=== PATIENT | female | born 1965 | race Caucasian/White ===

== ENCOUNTER → 2016-07-28 | Outpatient (CLI) | payer BC ==
--- NOTE | 2016-07-28 12:23 | US ---
EXAMINATION TYPE: US abdomen complete DATE OF EXAM: 07/28/2016 12:09 PM COMPARISON: NONE CLINICAL HISTORY: Abd Pain R10.33, K80.20 Gall Stones. Pt states ruq pain that radiates posteriorly a nd that wakes her up at night EXAM MEASUREMENTS: Liver Length: 13.8 cm Gallbladder Wall: 0.2 cm CBD: 0.4 cm Spleen: 7.8 cm Right Kidney: 10.1 x 3.7 x 5.0 cm Left Kidney: 11.2 x 4.4 x 3.6 cm TECHNOLOGIST IMPRESSION: Pancreas: wnl as seen Liver: wnl Gallbladder: couple tiny polyps near gb fundus Evidence for sonographic Luther's sign: no CBD: wnl Spleen: wnl Right Kidney: wnl Left Kidney: wnl, some limitations at lower pole due to overlying bowel gas Upper IVC: wnl Abd Aorta: wnl The gallbladder wall measures 2 mm. There are 2, questionable polyps in the fundus of the gallbladder . IMPRESSION: QUESTIONABLE POLYPS WITHIN THE FUNDUS OF THE GALLBLADDER.
== END | disposition home or self-care (01) ==
LOC: RADUSWWP 11:35
PROVIDERS: ATTEND Radiology Radiation Oncology
DX: R10.9 Unspecified abdominal pain (principal)
CPT/HCPCS: 76700

== ENCOUNTER → 2019-02-06 | Outpatient (CLI) | payer BC ==
--- NOTE | 2019-02-06 14:44 | CT ---
EXAMINATION TYPE: CT ChestAbdPelvis w con DATE OF EXAM: 02/06/2019 COMPARISON: None HISTORY: 53-year-old female Breast cancer/suspect mets TECHNIQUE: Contiguous axial scanning of the chest, abdomen, and pelvis performed with IV Contrast, pa tient injected with 100 mL of Isovue 300. Delayed images through the kidneys were obtained. Coronal/s agittal reconstructions performed. CT DLP: 552.8 mGycm Automated exposure control for dose reduction was used. FINDINGS: CHEST: Heart normal size without pericardial effusion. Aortic root is ectatic up to 3.8 cm. Ascending aorta aneurysmal at 4.0 cm. Conventional arch vessel b ranching anatomy. No thoracic lymphadenopathy by CT size criteria. Left axillary surgical clips and bilateral TRAM flap reconstructions demonstrated. Focal pleural parenchymal thickening extending to the left suprahilar region with associated traction bronchiectasis and volume loss. The degree of thickening in the subpleural region measuring up to 1. 2 cm, follow-up is recommended to reassess for any changes. Focal patchy groundglass nodularity measuring up to 6 mm within the right lower lobe, referred to axi al images 47 and 49 Otherwise, no consolidation or pleural effusion. ABDOMEN: No focal liver lesion or biliary ductal dilatation. Portal venous system is patent. Reading motion ar tifacts within the abdomen. Gallbladder, adrenal glands, kidneys, spleen, and pancreas appear within normal limits. No dilated small bowel, free fluid, or free air. No mesenteric or retroperitoneal lymphadenopathy sohan ntified. Scattered prominent mesenteric lymph nodes measure up to 4 mm. Normal appendix. Oral contrast has progressed to the rectum. No significant stool burden no pericolonic inflammatory c hange seen. PELVIS: Bladder is urine distended. Uterus is anteverted. Left-sided periuterine varices. Right ovary is visu alized. Left ovary not clearly delineated from bowel loops. No abnormal fluid collection in the pelvi s or pelvic lymphadenopathy seen. BONES: Numerous high density foci within the bilateral gluteal musculature of uncertain clinical significanc e and etiology, possible needles or calcifications. Facet arthropathy degenerative disc disease lower lumbar spine. No osseous destructive process seen. IMPRESSION: 1. STATUS POST LEFT AXILLARY CARMEN DISSECTION WITH BILATERAL TRAM FLAP RECONSTRUCTION. 2. FOCAL PLEURAL PARENCHYMAL THICKENING AND SOFT TISSUE DENSITY ANTERIOR LEFT UPPER LOBE WITH SOME SOCIATED CICATRICIAL BRONCHIECTASIS. POSTTREATMENT CHANGE IS FAVORED. HOWEVER, GIVEN THE DEGREE OF SO FT TISSUE THICKENING, SHORT INTERVAL FOLLOW-UP RECOMMENDED TO ENTER STABILITY. 3. NODULARITY MEASURING UP TO 6 MM AND ASSOCIATED GROUNDGLASS DENSITY RIGHT LOWER LOBE MAY REPRESENT AN INFECTIOUS/INFLAMMATORY FOCUS. CORRELATE WITH PATIENT'S SYMPTOMS. REASSESS AT FOLLOW-UP AFTER KEE TMENT. 4. PRIOR GRANULOMATOUS DISEASE AND MILD ANEURYSM ASCENDING AORTA 4.0 CM.
--- NOTE | 2019-02-06 17:17 | NM ---
EXAMINATION TYPE: NM bone scan whole body DATE OF EXAM: 02/06/2019 COMPARISON: CT same day HISTORY: 53-year-old female with history of breast cancer and chest pain for 2 to 4 weeks. Technique: Delayed whole-body scanning was performed following the injection of 23.8 mCi Tc 99m MDP. Images acquired 4 hours post injection. FINDINGS: There is some mild focal increased uptake in the anterior upper right chest likely corresponding to t he first rib end such as secondary to costochondritis. Some degenerative tracer activity noted along the left side of the L4-L5 disc space. No suspicious distribution of tracer to suggest osseous metast atic disease. IMPRESSION: Suspect some degenerative or posttraumatic focal uptake probably relating to the right first rib end. Correlate for any potential symptoms of costochondritis. Some degenerative activity toward the left in the lower lumbar spine. No scintigraphic evidence for osseous metastatic disease.
== END | disposition home or self-care (01) ==
LOC: RADCTMAIN 08:28
PROVIDERS: ATTEND Internal Medicine Hematology & Oncology
DX: C50.812 Malignant neoplasm of overlapping sites of left female breast (principal); J47.9 Bronchiectasis, uncomplicated; R91.1 Solitary pulmonary nodule; D71 Functional disorders of polymorphonuclear neutrophils; I71.2 Thoracic aortic aneurysm, without rupture; M51.36 Other intervertebral disc degeneration, lumbar region; Z98.890 Other specified postprocedural states
CPT/HCPCS: 71260; 74177; 78306; A9503; Q9967

== ENCOUNTER → 2020-06-19 | Outpatient (CLI) | payer OTHER ==
--- NOTE | 2020-06-19 09:27 | USB ---
Reason for exam: clinical finding. History: Mastectomy of both breasts, 2010. Chemotherapy, 2011. Radiation therapy, 2010. Physical Findings: Nurse did not find any significant physical abnormalities on exam. US Breast BILAT Right complete breast ultrasound includes all four quadrants, the retroareolar region and axilla. Finding demonstrates no cystic or solid lesion seen. Left complete breast ultrasound includes all four quadrants, the retroareolar region and axilla. Finding demonstrates no cystic or solid lesion seen. Benign right axilla lymph node. These results were verbally communicated with the patient and result sheet given to the patient on 06/19/20. ASSESSMENT: Negative, BI-RAD 1 RECOMMENDATION: Clinical management of both breasts. Manage patient on a clinical basis.
== END | disposition home or self-care (01) ==
LOC: RADUSWWP 08:21
PROVIDERS: ATTEND Internal Medicine Hematology & Oncology
DX: Z08 Encounter for follow-up examination after completed treatment for malignant neoplasm (principal); Z85.3 Personal history of malignant neoplasm of breast

== ENCOUNTER → 2020-06-24 | Outpatient (CLI) | payer OTHER ==
--- NOTE | 2020-06-24 12:26 | CT ---
EXAMINATION TYPE: CT chest w con DATE OF EXAM: 06/24/2020 COMPARISON: 02/06/2019 HISTORY: breast CA follow up CT DLP: 130.3 mGycm, Automated exposure control for dose reduction was used. CONTRAST: Performed injected with 100 mL of Isovue 300. TECHNIQUE: Axial images were obtained at 5 mm thick sections. Reconstructed images are reviewed on Continuum computer in the coronal plane. FINDINGS: Portion of the thyroid visualized is normal. There is thickening with air bronchograms along the periphery of the anterior 6 left apex. This curre ntly measures to a depth of 2.4 cm. Prior measurement 1.2 cm. Some mild stranding is along the anterior lingula, example image series 4 image 32 this was present p reviously and is stable. No enlarged mediastinal or hilar adenopathy is evident. Couple small shotty lymph nodes are present. The ascending aorta diameter at the level of the main pulmonary artery is 3.8 cm. The main pulmonar y artery diameter at the bifurcation is 2.[address] sections are obtained through the upper abdomen. Abdomen is essentially unremarkable. IMPRESSIONS: 1. There is some progressive thickening of the consolidation anterior lateral left apex. Consider PET CT for additional evaluation. 2. No additional suspicious areas for metastatic disease
== END | disposition home or self-care (01) ==
LOC: RADCTMAIN 09:08
PROVIDERS: ATTEND Internal Medicine Hematology & Oncology
DX: J98.4 Other disorders of lung (principal); C50.812 Malignant neoplasm of overlapping sites of left female breast; C50.111 Malignant neoplasm of central portion of right female breast
CPT/HCPCS: 71260; Q9967

== ENCOUNTER 2020-11-02 00:08 | Emergency (ER) | payer OTHER ==
[2020-11-02 00:13] VITALS: TEMP 97.8
[2020-11-02] MEDS ORDERED: ONDANSETRON 4 MG/2 ML VIAL IVP STA (00:32)
[2020-11-02] MEDS ORDERED: MORPHINE SULFATE 4 MG/ML SYRINGE IV STA (00:32)
--- NOTE | 2020-11-02 00:54 | ED ---
Abdominal Pain HPI - General Chief Complaint: Abdominal Pain Stated Complaint: Rt Side Pain Time Seen by Provider: 11/02/20 00:16 Source: patient, RN notes reviewed Mode of arrival: ambulatory Limitations: no limitations - History of Present Illness Initial Comments: Patient is a 55-year-old female that presents to emergency room complaining of right sided back pain. She notes the pain is worse on deep inspiration and is sharp in nature. She notes that she was lifting something and thought she might a strainer back patient is that she's also recently treated for UTI which she recently finished her anabiotic 4. She denied any urinary tract infection type symptoms at this time. She notes that the pain only comes on with deep inspiration right around the bottom of her ribs on the right side of her back. Patient was in no apparent distress or pain while sitting up in bed in the exam interview. She did note that her pain was approximately a 7 out of 10 and would like some pain medication. She denied any chest pain shortness of breath hea dache nausea vomiting diarrhea constipation fever fatigue chills injury trauma hematuria dysuria or frequency. - Related Data Home Medications Medication Instructions Recorded Confirmed Tamoxifen [Nolvadex] 20 mg PO DAILY 12/05/15 12/05/15 predniSONE 10 mg PO DAILY 12/05/15 12/05/15 Previous Rx's Medication Instructions Recorded Hydrocodone/Acetaminophen [[place] 1 each PO Q4HR PRN #20 tab 12/05/15 5-325] Allergies Allergy/AdvReac Type Severity Reaction Status Date / Time azithromycin Allergy Unknown Verified 11/02/20 00:13 clarithromycin [From Biaxin] Allergy Unknown Verified 11/02/20 00:13 clindamycin Allergy Unknown Verified 11/02/20 00:13 clobetasol Allergy Unknown Verified 11/02/20 00:13 dapsone Allergy Unknown Verified 11/02/20 00:13 erythromycin base Allergy Unknown Verified 11/02/20 00:13 gallium Allergy Unknown Verified 11/02/20 00:13 levofloxacin [From Levaquin] Allergy Unknown Verified 11/02/20 00:13 Penicillins Allergy Unknown Verified 11/02/20 00:13 salicylic acid [From Salvax] Allergy Unknown Verified 11/02/20 00:13 tetracycline Allergy Unknown Verified 11/02/20 00:13 Review of Systems ROS Statement: Those systems with pertinent positive or pertinent negative responses have been documented in the HPI. ROS Other: All systems not noted in ROS Statement are negative. Past Medical History Past Medical History: Cancer Additional Past Medical History / Comment(s): aneursym, breast cancer History of Any Multi-Drug Resistant Organisms: None Reported Past Surgical History: Breast Surgery Additional Past Surgical History / Comment(s): lymph node removal to left side Past Psychological History: No Psychological Hx Reported Smoking Status: Never smoker Past Alcohol Use History: Occasional Past Drug Use History: None Reported General Exam Limitations: no limitations General appearance: alert, in no apparent distress Head exam: Present: atraumatic, normocephalic, normal inspection Eye exam: Present: normal appearance, PERRL, EOMI. Absent: scleral icterus, conjunctival injection, periorbital swelling Neck exam: Present: normal inspection Respiratory exam: Present: normal lung sounds bilaterally. Absent: respiratory distress, wheezes, rales, rhonchi, stridor Cardiovascular Exam: Present: regular rate, normal rhythm, normal heart sounds. Absent: systolic murmur, diastolic murmur, rubs, gallop, clicks GI/Abdominal exam: Present: soft, normal bowel sounds. Absent: distended, tenderness, guarding, rebound, rigid Extremities exam: Present: normal inspection, full ROM, normal capillary refill. Absent: tenderness, pedal edema, joint swelling, calf tenderness Back exam: Present: normal inspection. Absent: tenderness Neurological exam: Present: alert, oriented X3, CN II-XII intact Psychiatric exam: Present: normal affect, normal mood Skin exam: Present: warm, dry, intact, normal color. Absent: rash Course Vital Signs 11/02/20 00:09 Temperature 97.8 F Pulse Rate 87 Respiratory 20 Rate Blood Pressure 155/97 O2 Sat by Pulse 98 Oximetry Medical Decision Making - Medical Decision Making 55-year-old female complaining of right back pain just inferior the ribs on deep inspiration. Labs, chest x-ray, 4 mg of morphine, 4 mg of Zofran ordered. Labs unremarkable. Chest x-ray no acute cardiopulmonary process. Case discussed with Dr. Fox, patient can discharge home with follow-up to primary care. - Lab Data Result diagrams: 11/02/20 00:43 11/02/20 00:43 Lab Results 11/02/20 11/02/20 11/02/20 Range/Units 00:43 00:43 00:43 WBC 6.7 (3.8-10.6) k/uL RBC 4.31 (3.80-5.40) m/uL Hgb 13.1 (11.4-16.0) gm/dL Hct 39.3 (34.0-46.0) % MCV 91.3 (80.0-100.0) fL MCH 30.4 (25.0-35.0) pg MCHC 33.3 (31.0-37.0) g/dL RDW 11.9 (11.5-15.5) % Plt Count 203 (150-450) k/uL MPV 6.9 Neutrophils % 62 % Lymphocytes % 26 % Monocytes % 6 % Eosinophils % 4 % Basophils % 1 % Neutrophils # 4.2 (1.3-7.7) k/uL Lymphocytes # 1.7 (1.0-4.8) k/uL Monocytes # 0.4 (0-1.0) k/uL Eosinophils # 0.3 (0-0.7) k/uL Basophils # 0.1 (0-0.2) k/uL Sodium 137 (137-145) mmol/L Potassium 4.2 (3.5-5.1) mmol/L Chloride 103 (98-107) mmol/L Carbon Dioxide 29 (22-30) mmol/L Anion Gap 5 mmol/L BUN 21 H (7-17) mg/dL Creatinine 0.82 (0.52-1.04) mg/dL Est GFR (CKD-EPI)AfAm >90 (>60 ml/min/1.73 sqM) Est GFR (CKD-EPI)NonAf 82 (>60 ml/min/1.73 sqM) Glucose 99 (74-99) mg/dL Calcium 9.6 (8.4-10.2) mg/dL Total Bilirubin 0.3 (0.2-1.3) mg/dL AST 31 (14-36) U/L ALT 20 (4-34) U/L Alkaline Phosphatase 84 (38-126) U/L Total Protein 6.9 (6.3-8.2) g/dL Albumin 4.3 (3.5-5.0) g/dL Urine Color Light Yellow Urine Appearance Clear (Clear) Urine pH 6.5 (5.0-8.0) Ur Specific [place] 1.011 (1.001-1.035) Urine Protein Negative (Negative) Urine Glucose (UA) Negative (Negative) Urine Ketones Negative (Negative) Urine Blood Negative (Negative) Urine Nitrite Negative (Negative) Urine Bilirubin Negative (Negative) Urine Urobilinogen <2.0 (<2.0) mg/dL Ur Leukocyte Esterase Negative (Negative) Disposition Clinical Impression: Mechanical back pain, Back strain Disposition: HOME SELF-CARE Condition: Stable Instructions (If sedation given, give patient instructions): Costochondritis (ED) Additional Instructions: Please return to the Emergency Department if symptoms worsen or any other concerns. Follow-up with primary care in 3-5 days. Rest, avoid any strenuous activity or lifting. Take Tylenol Motrin as needed for pain control. Is patient prescribed a controlled substance at d/c from ED?: No Referrals: None,Stated [Primary Care Provider] - 1-2 days Time of Disposition: 01:51
[2020-11-02 01:03] LABS: Basophils # (A) 0.1 k/uL (0-0.2); Basophils % (A) 1 %; Eosinophils # (A) 0.3 k/uL (0-0.7); Eosinophils % (A) 4 %; HCT 39.3 % (34.0-46.0); HGB 13.1 gm/dL (11.4-16.0); Lymphocytes # (A) 1.7 k/uL (1.0-4.8); Lymphocytes % (A) 26 %; MCH 30.4 pg (25.0-35.0); MCHC 33.3 g/dL (31.0-37.0); MCV 91.3 fL (80.0-100.0); Mean Platelet Volume 6.9; Monocytes # (A) 0.4 k/uL (0-1.0); Monocytes % (A) 6 %; Neutrophils # (A) 4.2 k/uL (1.3-7.7); Neutrophils % (A) 62 %; Platelet Count 203 k/uL (150-450); RBC 4.31 m/uL (3.80-5.40); RDW 11.9 % (11.5-15.5); WBC 6.7 k/uL (3.8-10.6)
[2020-11-02 01:07] LABS: Appearance,Urine Clear (Clear); Bilirubin,Urine Negative (Negative); Blood,Urine Negative (Negative); Color,Urine Light Yellow; Glucose,Urine (UA) Negative (Negative); Ketones,Urine Negative (Negative); Leukocyte Esterase,Urine Negative (Negative); Nitrite,Urine Negative (Negative); PH, Urine 6.5 (5.0-8.0); Protein,Urine Negative (Negative); Specific Gravity,Urine 1.011 (1.001-1.035); Urobilinogen,Urine <2.0 mg/dL (<2.0)
[2020-11-02 01:12] LABS: ALT 20 U/L (4-34); AST 31 U/L (14-36); African American GFR (CKD) >90 (>60 ml/min/1.73 sqM); Albumin 4.3 g/dL (3.5-5.0); Alkaline Phosphatase 84 U/L (38-126); Anion Gap 5 mmol/L; Blood Urea Nitrogen 21 mg/dL (7-17); Calcium 9.6 mg/dL (8.4-10.2); Carbon Dioxide 29 mmol/L (22-30); Chloride 103 mmol/L (98-107); Glucose 99 mg/dL (74-99); Non-African American GFR(CKD) 82 (>60 ml/min/1.73 sqM); Potassium 4.2 mmol/L (3.5-5.1); Sodium 137 mmol/L (137-145); Total Bilirubin 0.3 mg/dL (0.2-1.3); Total Protein 6.9 g/dL (6.3-8.2)
--- NOTE | 2020-11-02 01:55 | XR ---
EXAM: XR Chest, 2 Views CLINICAL HISTORY: Rib pain on deep breath TECHNIQUE: Frontal and lateral views of the chest. COMPARISON: 05/14/2014, 12/05/2015, CT 06/24/20 FINDINGS: Lungs: Stable bilateral pulmonary hyperinflation and pleural- parenchymal scar. No consolidation. Pleural space: No significant abnormality. No pneumothorax. Heart: No significant abnormality. No cardiomegaly. Mediastinum: No significant abnormality. Bones/joints: No acute osseous abnormality. Soft tissues: Surgical clips project over the left axilla. IMPRESSION: No acute cardiopulmonary process.
[2020-11-02] MEDS ORDERED: IBUPROFEN 600 MG STARTER PACK 4 TAB BTL PO STA (02:03)
[2020-11-02 02:27] VITALS: BP 145/89; PULSE 76; RESP 17
== END 2020-11-02 02:27 | disposition home or self-care (01) ==
LOC: EC 00:08
DX: S39.012A Strain of muscle, fascia and tendon of lower back, initial encounter (principal); Z85.3 Personal history of malignant neoplasm of breast; Z79.52 Long term (current) use of systemic steroids; Z87.440 Personal history of urinary (tract) infections; Z88.0 Allergy status to penicillin; Z88.1 Allergy status to other antibiotic agents; X58.XXXA Exposure to other specified factors, initial encounter
CPT/HCPCS: 36415; 80053; 85025; 81003; 71046; 99283; 96374; 96375; J2270; J2405

== ENCOUNTER → 2021-09-03 | Outpatient (CLI) | payer BC ==
[2021-09-03 17:58] LABS: Basophils # (A) 0.09 X 10*3/uL (0.00-0.10); Basophils % (A) 1.5 %; Eosinophils # (A) 0.08 X 10*3/uL (0.04-0.35); Eosinophils % (A) 1.3 %; HCT 41.4 % (37.2-46.3); Immature Grans, Automated 0.3 %; Lymphocytes # (A) 1.55 X 10*3/uL (0.90-5.00); Lymphocytes % (A) 25.4 %; MCH 29.6 pg (27.0-32.0); MCHC 31.4 g/dL (32.0-37.0); MCV 94.3 fL (80.0-97.0); Mean Platelet Volume 10.1 fL (9.5-12.2); Monocytes # (A) 0.37 X 10*3/uL (0.20-1.00); Monocytes % (A) 6.1 %; NRBC Per 100 WBC 0 /100 WBCS (0.0-0.0); Neutrophils # (A) 3.99 X 10*3/uL (1.80-7.70); Neutrophils % (A) 65.4 %; Platelet Count 220 X 10*3/uL (140-440); RBC 4.39 X 10*6/uL (4.10-5.20); RDW 12.3 % (11.5-14.5)
[2021-09-03 18:30] LABS: ALT 32 U/L (8-44); AST 28 U/L (13-35); African American GFR (CKD) 95.1 (60.0-200.0); Albumin 4.6 g/dL (3.8-4.9); Albumin/Globulin Ratio 2.04 (1.60-3.17); Alkaline Phosphatase 79 U/L (41-126); BUN/Creat Ratio 24.88 Ratio (12.00-20.00); Bilirubin, Conjugated <0.20 mg/dL (0.20-0.40); Blood Urea Nitrogen 20.2 mg/dL (9.0-27.0); Calcium 9.5 mg/dL (8.7-10.3); Chloride 103 mmol/L (96-109); Globulin 2.3 g/dL (1.6-3.3); Glucose 103 mg/dL (70-110); LDL Cholesterol,Calculated 76.5 mg/dL (0.0-131.0); Non-African American GFR(CKD) 82.1 (60.0-200.0); Sodium 139 mmol/L (135-145); Total Protein 6.9 g/dL (6.2-8.2)
[2021-09-03 19:24] LABS: Cancer Antigen 125 10.6 U/mL (0.0-30.1); Cancer Antigen 153 6.6 U/mL (0.0-32.3)
== END | disposition home or self-care (01) ==
LOC: LABWHC1 14:13
PROVIDERS: ATTEND Radiology Radiation Oncology
DX: C50.412 Malignant neoplasm of upper-outer quadrant of left female breast (principal); K43.9 Ventral hernia without obstruction or gangrene
CPT/HCPCS: 36415; 80048; 80061; 80076; 82306; 82378; 82607; 84439; 84443; 84481; 85025; 86300; 86304

== ENCOUNTER → 2021-09-14 | Outpatient (CLI) | payer BC ==
--- NOTE | 2021-09-14 14:47 | US ---
EXAMINATION TYPE: US pelvic limited DATE OF EXAM: 09/14/2021 COMPARISON: NONE CLINICAL HISTORY: K43.9 VENTRAL HERNIA WITHOUT OBSTRUCTION OR GANGRENE. bulging area right pelvis barbara t comes and goes, rule out hernia scanned within patient's area of concern, right lower abdomen, no changes within abdominal wall with valsalva, unable to visualize hernia with ultrasound at this time ?other imaging modality IMPRESSION: No visible hernia by ultrasound at this time.
== END | disposition home or self-care (01) ==
LOC: RADUSWWP 14:00
PROVIDERS: ATTEND Radiology Radiation Oncology
DX: K43.9 Ventral hernia without obstruction or gangrene (principal)
CPT/HCPCS: 76857

== ENCOUNTER 2021-12-17 08:13 | Day surgery (SDC) | payer BC ==
[2021-12-15 11:40] VITALS: BMI 19.9
--- NOTE | 2021-12-17 07:36 | P.GSHP ---
History of Present Illness H&P Date: 12/17/21 CHIEF COMPLAINT: Colon screen HISTORY OF PRESENT ILLNESS: The patient is a 56-year-old female who presents for colon screen. Lower endoscopy was offered for further evaluation and management. PAST MEDICAL HISTORY: Please see list. PAST SURGICAL HISTORY: Please see list. MEDICATIONS: Please see list. ALLERGIES: Please see list. SOCIAL HISTORY: No illicit drug use FAMILY HISTORY: No reports of Crohn disease or ulcerative colitis. REVIEW OF ORGAN SYSTEMS: CONSTITUTIONAL: No reports of fevers or chills. PHYSICAL EXAM: VITAL SIGNS: Stable GENERAL: Well-developed pleasant in no acute distress. HEENT: No scleral icterus. Extraocular movements grossly intact. Moist buccal mucosa. NECK: Supple without lymphadenopathy. CHEST: Unlabored respirations. Equal bilateral excursions. CARDIOVASCULAR: Regular rate and rhythm. Distal 2+ pulses. ABDOMEN: Soft, nontender, nondistended. MUSCULOSKELETAL: No clubbing, cyanosis, or edema. ASSESSMENT: 1. Colon screen. PLAN: 1. Recommend proceeding with a lower endoscopy Past Medical History Past Medical History: Asthma, Cancer, COPD, GERD/Reflux, Osteoarthritis (OA) Additional Past Medical History / Comment(s): " HEART" aneursym- STATES DR IS WATCHING IT. breast cancer History of Any Multi-Drug Resistant Organisms: None Reported Past Surgical History: Breast Surgery Additional Past Surgical History / Comment(s): lymph node removal to left side- BILATERAL MASTECTOMY WITH RE CONSTRUCTION Past Anesthesia/Blood Transfusion Reactions: No Reported Reaction Smoking Status: Former smoker - Past Family History Father Family Medical History: Cancer, Deep Vein Thrombosis (DVT) Medications and Allergies Home Medications Medication Instructions Recorded Confirmed Type No Known Home Medications 12/15/21 12/15/21 History Allergies Allergy/AdvReac Type Severity Reaction Status Date / Time clarithromycin [From Biaxin] Allergy RAPID Verified 12/15/21 11:08 HEART BEAT clindamycin Allergy HIVES Verified 12/15/21 11:08 clobetasol Allergy SEVERE RASH Verified 12/15/21 11:08 dapsone Allergy SEVERE Verified 12/15/21 11:08 MIGRAINE HEADACHE erythromycin base Allergy UPSET Verified 12/15/21 11:08 STOMACHE ,VOMITING gallium Allergy HIVES Verified 12/15/21 11:08 levofloxacin [From Levaquin] Allergy HIVES Verified 12/15/21 11:08 Penicillins Allergy HIVES, Verified 12/15/21 11:08 tetracycline Allergy HIVES Verified 12/15/21 11:08
[~2021-12-17 08:13] MED LIST: LACTATED RINGERS 1,000 ML IV SCH; LIDOCAINE 1% (10MG/ML) FOR IV START INTRADERMA PRN
[2021-12-17 08:39] VITALS: TEMP 98.2
[2021-12-17] MEDS ORDERED: PROPOFOL 10 MG/ML 20 ML VIAL IV ONE (09:15)
[2021-12-17 09:45] VITALS: RESP 16
--- NOTE | 2021-12-17 09:51 | P.PCN ---
Date of Procedure: 12/17/21 Description of Procedure: PREOPERATIVE DIAGNOSIS: Colonoscopy screening. POSTOPERATIVE DIAGNOSIS: Colonoscopy screening. OPERATION: Colonoscopy to the cecum, ileocecal valve and appendiceal orifice. SURGEON: Lola Howell MD. ANESTHESIA: MAC. INDICATIONS: The patient is a 56-year-old female who presents for colonoscopy screening. Benefits and risks were described and informed consent was obtained. DESCRIPTION OF PROCEDURE: The patient had undergone Sutab prep. The patient had been brought into the operating room and laid in the left lateral decubitus position. After adequate intravenous sedation, the rectum was examined with 2% lidocaine jelly. External hemorrhoids were encountered. The rectal tone was within normal limits. No lesions were palpated in the rectal vault. An Olympus colonoscope was advanced until the cecum, ileocecal valve and appendiceal orifice were clearly viewed. The prep was excellent. No scattered diverticulosis was encountered. No colonic polyps were found. No evidence of focal colitis was found. Retroflexion of the scope demonstrated grade 1 internal hemorrhoids without active bleeding or inflammation. The colon was desufflated. The patient had tolerated the procedure well. Withdrawal time was over 6 minutes. FINDINGS: Aronchick preparation quality scale 1 (1-5) Internal hemorrhoids, grade 2 External prolapsed hemorrhoids, grade 3. No arteriovenous malformations. No adenomatous polyps. No focal colitis. Highly redundant sigmoid colon RECOMMENDATIONS: Lower endoscopy in 10 2031 Plan - Discharge Summary Discharge Rx Participant: No New Discharge Prescriptions: No Action No Known Home Medications Discharge Medication List No Known Home Medications 12/15/21 [History] Follow up Appointment(s)/Referral(s): Lola Howell MD [STAFF PHYSICIAN] - 12/29/21 Patient Instructions/Handouts: *Surgery [facility] - (Anesthesia) Endoscopy Discharge Instructions, Colonoscopy (DC) Activity/Diet/Wound Care/Special Instructions: Repeat colonoscopy in 10 years2031 Discharge Disposition: HOME SELF-CARE
[2021-12-17 10:00] VITALS: BP 108/64; PULSE 60
== END 2021-12-17 10:45 | disposition home or self-care (01) ==
LOC: ORWHC2ENDO 08:13
PROVIDERS: ATTEND Surgery Plastic and Reconstructive Surgery
DX: Z12.11 Encounter for screening for malignant neoplasm of colon (principal); K64.2 Third degree hemorrhoids; K21.9 Gastro-esophageal reflux disease without esophagitis; J44.9 Chronic obstructive pulmonary disease, unspecified; M19.90 Unspecified osteoarthritis, unspecified site; F41.9 Anxiety disorder, unspecified; Z80.3 Family history of malignant neoplasm of breast; Z82.49 Family history of ischemic heart disease and other diseases of the circulatory system; Z87.891 Personal history of nicotine dependence; Z80.9 Family history of malignant neoplasm, unspecified; Z88.3 Allergy status to other anti-infective agents; Z88.8 Allergy status to other drugs, medicaments and biological substances; Z88.0 Allergy status to penicillin; Z88.1 Allergy status to other antibiotic agents
CPT/HCPCS: 45378; J2704

== ENCOUNTER → 2022-03-10 | Outpatient (CLI) | payer BC ==
--- NOTE | 2022-03-10 14:21 | XR ---
EXAMINATION TYPE: XR cervical spine comp DATE OF EXAM: 03/10/2022 11:11 AM INDICATION: Patient age:Female; 56 years old; Reason for study: [id number] [id number] [id number]; COMPARISON: None TECHNIQUE: The cervical spine was imaged. Frontal, lateral, odontoid and bilateral oblique. FINDINGS: The osseous structures show normal alignment without evidence of an acute fracture. There are osteoph ytes noted throughout the cervical spine on the anterior and lateral aspects of the vertebral bodies. The intervertebral disk spaces are preserved. Pedicles are intact. Soft tissues are within normal limits. The odontoid appears intact. Surgical clips noted projecting over the upper thorax. IMPRESSION: 1. No fracture or dislocation. 2. Mild degenerative disc disease changes of the cervical spine.
--- NOTE | 2022-03-10 14:21 | XR ---
EXAMINATION TYPE: XR shoulder complete LT DATE OF EXAM: 03/10/2022 11:11 AM INDICATION: Patient age:Female; 56 years old; Reason for study: [id number] C773 K439; COMPARISON: None TECHNIQUE: The left shoulder was examined in AP, internally rotated and scapular Y projections. . FINDINGS: No evidence of acute osseous pathology, joint dislocation, or soft tissue swelling. The remaining por tions of the visualized chest are unremarkable. Left axillary surgical clips present. IMPRESSION: No acute osseous pathology.
== END | disposition home or self-care (01) ==
LOC: RADXRMAIN 13:43
PROVIDERS: ATTEND Radiology Radiation Oncology
DX: C50.412 Malignant neoplasm of upper-outer quadrant of left female breast (principal); C77.3 Secondary and unspecified malignant neoplasm of axilla and upper limb lymph nodes; M50.30 Other cervical disc degeneration, unspecified cervical region; K43.9 Ventral hernia without obstruction or gangrene; Z85.3 Personal history of malignant neoplasm of breast
CPT/HCPCS: 72050

== ENCOUNTER → 2022-03-25 | Outpatient (CLI) | payer BC ==
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
== END | disposition home or self-care (01) ==
LOC: RADMRIMAIN 16:20
PROVIDERS: ATTEND Radiology Radiation Oncology
DX: M50.222 Other cervical disc displacement at C5-C6 level (principal); C77.3 Secondary and unspecified malignant neoplasm of axilla and upper limb lymph nodes; C50.412 Malignant neoplasm of upper-outer quadrant of left female breast
CPT/HCPCS: 72141

== ENCOUNTER 2024-05-09 09:13 | Day surgery (SDC) | payer BC, OTHER ==
--- NOTE | 2024-05-09 07:45 | P.GSHP ---
History of Present Illness H&P Date: 05/09/24 CHIEF COMPLAINT: Colon screen HISTORY OF PRESENT ILLNESS: The patient is a 58-year-old female who presents for colon screen. Lower endoscopy was offered for further evaluation and management. PAST MEDICAL HISTORY: Please see list. PAST SURGICAL HISTORY: Please see list. MEDICATIONS: Please see list. ALLERGIES: Please see list. SOCIAL HISTORY: No illicit drug use FAMILY HISTORY: No reports of Crohn disease or ulcerative colitis. REVIEW OF ORGAN SYSTEMS: CONSTITUTIONAL: No reports of fevers or chills. PHYSICAL EXAM: VITAL SIGNS: Stable GENERAL: Well-developed pleasant in no acute distress. HEENT: No scleral icterus. Extraocular movements grossly intact. Moist buccal mucosa. NECK: Supple without lymphadenopathy. CHEST: Unlabored respirations. Equal bilateral excursions. CARDIOVASCULAR: Regular rate and rhythm. Distal 2+ pulses. ABDOMEN: Soft, nontender, nondistended. MUSCULOSKELETAL: No clubbing, cyanosis, or edema. ASSESSMENT: 1. Colon screen. PLAN: 1. Recommend proceeding with a lower endoscopy Past Medical History Past Medical History: Asthma, Cancer, COPD, GERD/Reflux, Osteoarthritis (OA) Additional Past Medical History / Comment(s): " HEART" aneursym- STATES DR IS WATCHING IT. breast cancer, frequent urination at night. + cologard, Dark stool, feels bloated. neck issues - gentle with turning History of Any Multi-Drug Resistant Organisms: None Reported Past Surgical History: Breast Surgery Additional Past Surgical History / Comment(s): lymph node removal to left side- BILATERAL MASTECTOMY WITH RE CONSTRUCTION - chemo and radiation 13 yrs ago. colonoscopy Past Anesthesia/Blood Transfusion Reactions: No Reported Reaction Additional Past Anesthesia/Blood Transfusion Reaction / Comment(s): no BP or iv to left side Smoking Status: Former smoker - Past Family History Father Family Medical History: Cancer, Deep Vein Thrombosis (DVT) Mother Family Medical History: CVA/TIA Medications and Allergies Home Medications Medication Instructions Recorded Confirmed Type Albuterol Sulfate [Albuterol 1 puff INHALATION DIRECTED PRN 05/02/24 05/02/24 History Sulfate Hfa] Aspirin/Acetaminophen/Caffeine 1 each PO DIRECTED PRN 05/02/24 05/02/24 History [Excedrin Migraine Caplet] Allergies Allergy/AdvReac Type Severity Reaction Status Date / Time clarithromycin [From Biaxin] Allergy RAPID Verified 05/02/24 12:12 HEART BEAT clindamycin Allergy HIVES Verified 05/02/24 12:12 clobetasol Allergy SEVERE RASH Verified 05/02/24 12:12 dapsone Allergy SEVERE Verified 05/02/24 12:12 MIGRAINE HEADACHE erythromycin base Allergy UPSET Verified 05/02/24 12:12 STOMACHE ,VOMITING gallium Allergy HIVES Verified 05/02/24 12:12 levofloxacin [From Levaquin] Allergy HIVES Verified 05/02/24 12:12 Penicillins Allergy HIVES, Verified 05/02/24 12:12 tetracycline Allergy HIVES Verified 05/02/24 12:12
[~2024-05-09 09:13] MED LIST changes: -LACTATED RINGERS 1,000 ML IV SCH
[2024-05-09] MEDS: IV FLUID CONTINUATION 1,000 ML IV ONE (09:55)
[2024-05-09] MEDS: LACTATED RINGERS 1,000 ML IV SCH (09:55)
[2024-05-09 09:57] VITALS: RESP 16; TEMP 97.2
[2024-05-09] MEDS ORDERED: PROPOFOL 10 MG/ML 20 ML VIAL IV ONE (10:41)
--- NOTE | 2024-05-09 11:34 | P.PCN ---
Date of Procedure: 05/09/24 Description of Procedure: PREOPERATIVE DIAGNOSIS: Abnormal stool test, Cologuard POSTOPERATIVE DIAGNOSIS: Tubular adenoma transverse colon Few scattered diverticulosis Internal hemorrhoids, grade 2 OPERATION: Colonoscopy to the ileocecal valve and appendiceal orifice, cecum Colonoscopy with hot snare polypectomy SURGEON: Lola Howell MD. ANESTHESIA: MAC. INDICATIONS: The patient is an 58-year-old female who presents with a normal stool test, positive Cologuard. Benefits and risks were described and informed consent was obtained. DESCRIPTION OF PROCEDURE: The patient had undergone GoLytely prep. The patient had been brought into the operating room and laid in the left lateral decubitus position. After adequate intravenous sedation, the rectum was examined with 2% lidocaine jelly. External hemorrhoids were encountered. The rectal tone was within normal limits. No lesions were palpated in the rectal vault. An Olympus colonoscope was advanced until the cecum, ileocecal valve and appendiceal orifice were clearly viewed. The prep was excellent. Few scattered sigmoid diverticulosis was encountered. Colonic polyps were found and removed. No evidence of focal colitis was found. Retroflexion of the scope demonstrated grade 2 internal hemorrhoids without active bleeding or inflammation. The colon was desufflated. The patient3 had tolerated the procedure well. Withdrawal time was over 6 minutes. FINDINGS: Aronchick preparation quality scale 1 (1-5) Internal hemorrhoids, grade 3 External hemorrhoids, grade 3. No arteriovenous malformations. Sigmoid diverticulosis, few Removal of 1 polyps: - Snare polypectomy transverse colon, 5 mm tubulovillous adenoma No focal colitis. RECOMMENDATIONS: Repeat colonoscopy in 3 years, 2026 Plan - Discharge Summary New Discharge Prescriptions: Continue Aspirin/Acetaminophen/Caffeine [Excedrin Migraine Caplet] 1 each PO DIRECTED PRN PRN Reason: Migraine Headache Albuterol Sulfate [Albuterol Sulfate Hfa] 1 puff INHALATION DIRECTED PRN PRN Reason: wheeze Discharge Medication List Albuterol Sulfate [Albuterol Sulfate Hfa] 1 puff INHALATION DIRECTED PRN 05/02/24 [History] Aspirin/Acetaminophen/Caffeine [Excedrin Migraine Caplet] 1 each PO DIRECTED PRN 05/02/24 [History] Follow up Appointment(s)/Referral(s): Lola Howell MD [STAFF PHYSICIAN] - 06/19/24 4:30 pm Patient Instructions/Handouts: Colorectal Polyps (GEN) Activity/Diet/Wound Care/Special Instructions: Repeat colonoscopy 3 years, 2026 Discharge Disposition: HOME SELF-CARE
[2024-05-09 11:45] VITALS: BP 108/65; PULSE 78
== END 2024-05-09 12:27 | disposition home or self-care (01) ==
LOC: ORWHC2ENDO 09:13
PROVIDERS: ATTEND Surgery Plastic and Reconstructive Surgery
DX: Z12.11 Encounter for screening for malignant neoplasm of colon (principal); R19.5 Other fecal abnormalities; D12.3 Benign neoplasm of transverse colon; K57.30 Diverticulosis of large intestine without perforation or abscess without bleeding; K64.2 Third degree hemorrhoids; K64.4 Residual hemorrhoidal skin tags; J44.9 Chronic obstructive pulmonary disease, unspecified; K21.9 Gastro-esophageal reflux disease without esophagitis; M19.90 Unspecified osteoarthritis, unspecified site; F41.9 Anxiety disorder, unspecified; Z85.3 Personal history of malignant neoplasm of breast; Z87.891 Personal history of nicotine dependence; Z90.13 Acquired absence of bilateral breasts and nipples; Z92.21 Personal history of antineoplastic chemotherapy; Z92.3 Personal history of irradiation; Z98.890 Other specified postprocedural states; Z88.1 Allergy status to other antibiotic agents; Z88.0 Allergy status to penicillin
CPT/HCPCS: 88305; 45385; J2704